=== PATIENT | male | born 1970 | race Caucasian/White ===

== ENCOUNTER → 2020-09-21 | Outpatient (CLI) | payer MEDICARE, MEDICAID | LOC: MSC 14:00 | PROVIDERS: ATTEND Anesthesiology | DX: M46.20 Osteomyelitis of vertebra, site unspecified (principal); M96.1 Postlaminectomy syndrome, not elsewhere classified; M62.830 Muscle spasm of back; Z98.890 Other specified postprocedural states; G89.4 Chronic pain syndrome; F11.20 Opioid dependence, uncomplicated; F31.9 Bipolar disorder, unspecified; F41.9 Anxiety disorder, unspecified ==

== ENCOUNTER 2020-10-26 10:06 | Outpatient (CLI) | payer MEDICARE, OTHER | END 2020-10-26 23:59 | disposition home or self-care (01) | LOC: MSC 10:06 | PROVIDERS: ATTEND Anesthesiology | DX: G89.4 Chronic pain syndrome (principal); M46.20 Osteomyelitis of vertebra, site unspecified; M96.1 Postlaminectomy syndrome, not elsewhere classified; M62.830 Muscle spasm of back; F11.20 Opioid dependence, uncomplicated; F31.9 Bipolar disorder, unspecified; Z79.899 Other long term (current) drug therapy ==

== ENCOUNTER 2023-04-25 20:52 | Inpatient (IN) | payer MEDICARE, OTHER ==
[~2023-04-25] VITALS: Ht 175.3 cm; Wt 81.6 kg
[2023-04-25 21:20] LABS: BASOPHILS # (AUTO) 0.1 K/uL (0.0-0.2); BASOPHILS % (AUTO) 1.2 % (0.0-2.0); EOSINOPHILS # (AUTO) 0.1 K/uL (0.0-0.7); EOSINOPHILS % (AUTO) 1.5 % (0.0-6.0); HEMATOCRIT 38 % (39-51); HEMOGLOBIN 12.3 g/dL (13.5-17.5); LYMPHOCYTES % (AUTO) 27.7 % (20.0-44.0); MEAN CORPUSCULAR HEMOGLOBIN 28 PG (26.0-33.0); MEAN CORPUSCULAR HGB CONC 32 g/dl (31.0-36.0); MEAN CORPUSCULAR VOLUME 85 fL (80-96); MONOCYTES # (AUTO) 0.8 K/uL (0.1-1.30); MONOCYTES % (AUTO) 10.8 % (2.0-12.0); NEUTROPHILS # (AUTO) 4.3 K/uL (1.8-8.9); NEUTROPHILS % (AUTO) 58.8 % (43.0-81.0); PLATELET COUNT (AUTO) 377 K/uL (150-450); RED BLOOD CELL COUNT(AUTO) 4.45 MIL/uL (4.5-6.0); WHITE BLOOD COUNT (AUTO) 7.3 K/uL (4.3-11.0)
[2023-04-25 21:35] LABS: ACETAMINOPHEN <10 ug/ml (10-30); ALANINE AMINOTRANSFERASE 22 U/L (12-78); ALBUMIN 3.3 g/dL (3.4-5.0); ALCOHOL, BLOOD < 3 mg/dL (0-10); ALKALINE PHOSPHATASE 94 U/L (46-116); ASPARTATE AMINOTRANSFERASE 12 U/L (15-37); BILIRUBIN,DIRECT 0.1 mg/dL (0.0-0.2); BILIRUBIN,TOTAL 0.3 mg/dL (0.2-1.0); CALCIUM, SERUM 8.8 mg/dL (8.5-10.1); CARBON DIOXIDE 27 mmol/L (21-32); CHLORIDE 104 mmol/L (98-107); CREATININE 0.7 mg/dL (0.6-1.3); GLUCOSE 112 mg/dL (74-106); POTASSIUM 3.6 mmol/L (3.5-5.1); SALICYLATE 1.2 mg/dL (2.8-20.0); SODIUM SERUM 137 mmol/L (136-145); TOTAL PROTEIN, SERUM 7.4 g/dL (6.4-8.2); UREA NITROGEN, BLOOD 14 mg/dL (7-18)
[2023-04-25] MEDS ORDERED: MELA5TAB PO (23:27)
[2023-04-25] MEDS ORDERED: MINO100T PO (23:27)
[2023-04-25] MEDS ORDERED: MIRT-121 PO (23:27)
[2023-04-25] MEDS ORDERED: METH500T6 PO (23:27)
[2023-04-25] MEDS ORDERED: DIVA-78 PO (23:27)
[2023-04-25] MEDS ORDERED: GABA800T11 PO (23:27)
[2023-04-25] MEDS ORDERED: BUPR8TAB4 SL (23:27)
[2023-04-25] MEDS ORDERED: HALO5TAB PO (23:27)
[2023-04-25] MEDS ORDERED: OLAN5TAB3 PO (23:27)
[2023-04-25 23:50] VITALS: BP 125/93; TEMP 98; O2SAT 97
[2023-04-25 23:58] LABS: APPEARANCE,URINE CLEAR (CLEAR); BILIRUBIN,URINE NEGATIVE (NEGATIVE); BLOOD, URINE NEGATIVE Ery/uL (NEGATIVE); COLOR,URINE YELLOW (YELLOW); KETONES,URINE NEGATIVE (NEGATIVE); LEUKOCYTE ESTERASE ,URINE NEGATIVE (NEGATIVE); NITRITE, URINE NEGATIVE (NEGATIVE); PH,URINE 6.5 (5.0-8.0); PROTEIN,URINE NEGATIVE (NEGATIVE); UGLUCOSE NEGATIVE (NEGATIVE); UROBILINOGEN,URINE 0.2 EU/dL (0.2)
[2023-04-26] MEDS ORDERED: MAG HYDROX/AL HYDROX/SIMETH 30 ML UDC PO PRN
[2023-04-26] MEDS ORDERED: ACETAMINOPHEN 325 MG TABLET PO PRN
[2023-04-26] MEDS ORDERED: MAGNESIUM HYDROXIDE 30 ML UDC PO PRN
[2023-04-26 00:10] LABS: AMPHETAMINE, URINE NEGATIVE (NEGATIVE); BARBITURATE, URINE NEGATIVE (NEGATIVE); BENZODIAZEPINE, URINE NEGATIVE (NEGATIVE); CANNABINOID, URINE NEGATIVE (NEGATIVE); COCCAINE, URINE NEGATIVE (NEGATIVE); OPIATE, URINE NEGATIVE (NEGATIVE); PHENCYCLIDINE SCREEN,URINE NEGATIVE (NEGATIVE)
[2023-04-26] MEDS: BLOOD SUGAR DIAGNOSTIC 1 EACH STRIP IN ONE (00:17)
[2023-04-26] MEDS: clonazePAM 0.5 MG TABLET PO PRN (02:32)
[2023-04-26 08:00] VITALS: BP 141/74; TEMP 97.7; O2SAT 96
[2023-04-26 08:21] LABS: ALBUMIN 3.7 g/dL (3.4-5.0); BILIRUBIN,TOTAL 0.4 mg/dL (0.2-1.0); CALCIUM, SERUM 9.8 mg/dL (8.5-10.1); CREATININE 0.7 mg/dL (0.6-1.3); POTASSIUM 3.9 mmol/L (3.5-5.1); TOTAL PROTEIN, SERUM 8.4 g/dL (6.4-8.2)
[2023-04-26 08:38] LABS: CHOLESTEROL 209 mg/dL (<200); HDL CHOLESTEROL 64 mg/dL (40-60); LDL 121 mg/dL (0-99); TRIGLYCERIDES 57 mg/dL (30-150)
[2023-04-26] MEDS: BENZTROPINE MESYLATE (1 MG) 1 MG TABLET PO SCH (09:22)
[2023-04-26] MEDS: HALOPERIDOL 5 MG TABLET PO SCH (11:00)
[2023-04-26] MEDS: DIVALPROEX SODIUM 500 MG TABLET.DR PO SCH (11:00)
[2023-04-26] MEDS: OLANZAPINE 10 MG TABLET PO SCH (11:21)
[2023-04-26] MEDS ORDERED: CALC-494 PO (12:11)
[2023-04-26] MEDS ORDERED: SENN-261 PO (12:11)
[2023-04-26] MEDS ORDERED: DOCU100C36 PO (12:11)
[2023-04-26] MEDS ORDERED: LACT1CAP72 PO (12:11)
[2023-04-26] MEDS ORDERED: ACET-73 PO (12:11)
[2023-04-26] MEDS: LORAZEPAM INJ 2 MG/ML VIAL IV ONE (13:53)
[2023-04-26] MEDS: diphenhydrAMINE HCL 50 MG/ML VIAL IM ONE (13:53)
[2023-04-26] MEDS: HALOPERIDOL LACTATE INJ 5 MG/ML VIAL IM ONE (13:54)
[2023-04-26 16:00] VITALS: BP 122/95; TEMP 97.8; O2SAT 92
[2023-04-26 20:00] VITALS: BP 110/88; TEMP 98.4; O2SAT 97
[2023-04-26] MEDS: MIRTAZAPINE 15 MG TABLET PO SCH (21:21)
[2023-04-27 08:00] VITALS: BP 111/77; TEMP 97.8; O2SAT 98
[2023-04-27] MEDS: BUPRENORPHINE HCL 8 MG TAB.SUBL SL SCH (13:00)
[2023-04-27] MEDS ORDERED: ACETAMINOPHEN ES 500 MG TABLET PO PRN (13:00)
[2023-04-27] MEDS: LIDOCAINE 5% (PATCH) 1 EA PATCH TP SCH (13:28)
[2023-04-27] MEDS: GABAPENTIN 400 MG CAPSULE PO SCH (13:28)
[2023-04-27 16:00] VITALS: BP 122/87; TEMP 98; O2SAT 97
[2023-04-27] MEDS: BUPRENORPHINE HCL 2 MG SL SCH (16:20)
[2023-04-27] MEDS: LACTOBACILLUS RHAMNOSUS GG 1 EACH CAP.SPRINK PO SCH (17:54)
[2023-04-27] MEDS: DIVALPROEX SODIUM 500 MG TABLET.DR PO SCH (17:54)
[2023-04-27] MEDS: DOCUSATE SODIUM 100 MG CAPSULE PO SCH (17:54)
[2023-04-27] MEDS: SENNOSIDES 8.6 MG TABLET PO SCH (17:54)
[2023-04-27] MEDS: CALCIUM CARBONATE 500 MG TAB.CHEW PO SCH (21:00)
[2023-04-28 08:00] VITALS: BP 114/87; TEMP 97.9; O2SAT 100
[2023-04-28 16:00] VITALS: BP 119/86; TEMP 98; O2SAT 100
[2023-04-28 20:00] VITALS: BP 110/63; TEMP 97.7; O2SAT 97
[2023-04-29 08:00] VITALS: BP 96/77; TEMP 98.6; O2SAT 94
[2023-04-29 16:00] VITALS: BP 105/68; TEMP 98.9; O2SAT 94
[2023-04-29 20:18] VITALS: BP 137/95; TEMP 97.6; O2SAT 99
[2023-04-29] MEDS: TEMAZEPAM 7.5 MG CAPSULE PO PRN (22:07)
[2023-04-30 08:00] VITALS: BP 117/88; TEMP 97.9; O2SAT 99
[2023-04-30] MEDS ORDERED: KEY,NONCONTROL,TO KEEP IN PYXI 1 EA MC ONE (08:27)
[2023-04-30 16:00] VITALS: BP 123/79; TEMP 97.9; O2SAT 98
[2023-04-30 20:24] VITALS: BP 120/88; TEMP 98.2; O2SAT 98
[2023-05-01 08:00] VITALS: BP 145/90; TEMP 98.7; O2SAT 98
[2023-05-01] MEDS ORDERED: KEY,NONCONTROL,TO KEEP IN PYXI 1 EA MC ONE (08:16)
[2023-05-01 16:00] VITALS: BP 123/84; TEMP 98.8; O2SAT 98
[2023-05-01 20:34] VITALS: BP 116/95; TEMP 98.6; O2SAT 97
[2023-05-02 08:00] VITALS: BP 129/90; TEMP 98.7; O2SAT 97
[2023-05-02] MEDS ORDERED: KEY,NONCONTROL,TO KEEP IN PYXI 1 EA MC ONE (08:18)
[2023-05-02 16:00] VITALS: BP 108/69; TEMP 97.9; O2SAT 96
[2023-05-02 20:00] VITALS: BP 117/69; TEMP 97.9; O2SAT 96
[2023-05-03 08:00] VITALS: BP 119/90; TEMP 97.8; O2SAT 95
[2023-05-03] MEDS ORDERED: KEY,NONCONTROL,TO KEEP IN PYXI 1 EA MC ONE (08:51)
== END 2023-05-03 13:30 | DRG 885 ==
LOC: ER 21:01 → GPS 23:14
PROVIDERS: ADMIT Psychiatry & Neurology Psychiatry
DX: F20.0 Paranoid schizophrenia (principal); F11.20 Opioid dependence, uncomplicated; F31.9 Bipolar disorder, unspecified; D69.6 Thrombocytopenia, unspecified; Z87.39 Personal history of other diseases of the musculoskeletal system and connective tissue; G89.29 Other chronic pain; Z79.899 Other long term (current) drug therapy
CPT/HCPCS: 36415; 80048-TC; 80053-TC; 80061-TC; 80076-TC; 82962-TC; 85025-TC; 87081-TC; 97112-TC; 97116-TC; 97530-TC; G0480; J1200; J1630; J2060

== ENCOUNTER 2023-08-05 00:02 | Inpatient (IN) | payer MEDICARE, OTHER ==
[~2023-08-05] VITALS: Ht 175.3 cm; Wt 81.6 kg
[~2023-08-05 00:02] MED LIST: ACET-73 PO; BUPR8TAB4 SL; CALC-494 PO; DIVA-78 PO; DOCU100C36 PO; GABA800T11 PO; HALO5TAB PO; LACT1CAP72 PO; MELA5TAB PO; METH500T6 PO; MINO100T PO; MIRT-121 PO; OLAN5TAB3 PO; SENN-261 PO
[2023-08-05 00:46] LABS: BASOPHILS # (AUTO) 0.1 K/uL (0.0-0.2); BASOPHILS % (AUTO) 1.1 % (0.0-2.0); EOSINOPHILS # (AUTO) 0.7 K/uL (0.0-0.7); EOSINOPHILS % (AUTO) 10.2 % (0.0-6.0); HEMATOCRIT 39 % (39-51); HEMOGLOBIN 13.1 g/dL (13.5-17.5); LYMPHOCYTES # (AUTO) 2.4 K/uL (0.8-4.8); LYMPHOCYTES % (AUTO) 34.7 % (20.0-44.0); MEAN CORPUSCULAR HEMOGLOBIN 31 PG (26.0-33.0); MEAN CORPUSCULAR HGB CONC 34 g/dl (31.0-36.0); MEAN CORPUSCULAR VOLUME 91 fL (80-96); MONOCYTES # (AUTO) 0.6 K/uL (0.1-1.30); MONOCYTES % (AUTO) 8.7 % (2.0-12.0); NEUTROPHILS # (AUTO) 3.1 K/uL (1.8-8.9); NEUTROPHILS % (AUTO) 45.3 % (43.0-81.0); PLATELET COUNT (AUTO) 273 K/uL (150-450); RED BLOOD CELL COUNT(AUTO) 4.27 MIL/uL (4.5-6.0); RED CELL DISTRIBUTION WIDTH 15.5 % (11.5-15.0); WHITE BLOOD COUNT (AUTO) 6.9 K/uL (4.3-11.0)
[2023-08-05 01:07] LABS: CALCIUM, SERUM 8.5 mg/dL (8.5-10.1); CARBON DIOXIDE 27 mmol/L (21-32); CHLORIDE 109 mmol/L (98-107); CREATININE 0.9 mg/dL (0.6-1.3); GLUCOSE 94 mg/dL (74-106); POTASSIUM 4.1 mmol/L (3.5-5.1); SODIUM SERUM 141 mmol/L (136-145); UREA NITROGEN, BLOOD 20 mg/dL (7-18)
[2023-08-05 01:11] LABS: ALANINE AMINOTRANSFERASE 63 U/L (12-78); ALBUMIN 2.9 g/dL (3.4-5.0); ALCOHOL, BLOOD < 3 mg/dL (0-10); ALKALINE PHOSPHATASE 84 U/L (46-116); ASPARTATE AMINOTRANSFERASE 31 U/L (15-37); BILIRUBIN,TOTAL 0.2 mg/dL (0.2-1.0)
[2023-08-05 01:13] LABS: SALICYLATE 1.6 mg/dL (2.8-20.0)
[2023-08-05 01:14] LABS: ACETAMINOPHEN <10 ug/ml (10-30)
[2023-08-05 04:25] LABS: AMPHETAMINE, URINE NEGATIVE (NEGATIVE); BARBITURATE, URINE NEGATIVE (NEGATIVE); BENZODIAZEPINE, URINE NEGATIVE (NEGATIVE); CANNABINOID, URINE NEGATIVE (NEGATIVE); COCCAINE, URINE NEGATIVE (NEGATIVE); OPIATE, URINE NEGATIVE (NEGATIVE); PHENCYCLIDINE SCREEN,URINE NEGATIVE (NEGATIVE)
[2023-08-05 04:38] LABS: APPEARANCE,URINE CLEAR (CLEAR); BILIRUBIN,URINE NEGATIVE (NEGATIVE); BLOOD, URINE NEGATIVE Ery/uL (NEGATIVE); COLOR,URINE YELLOW (YELLOW); KETONES,URINE NEGATIVE (NEGATIVE); LEUKOCYTE ESTERASE ,URINE NEGATIVE (NEGATIVE); NITRITE, URINE NEGATIVE (NEGATIVE); PH,URINE 6.5 (5.0-8.0); PROTEIN,URINE NEGATIVE (NEGATIVE); UGLUCOSE NEGATIVE (NEGATIVE); UROBILINOGEN,URINE 0.2 EU/dL (0.2)
[2023-08-05] MEDS ORDERED: NA P133E RC (08:13)
[2023-08-05] MEDS ORDERED: LIDO28.310 TP (08:13)
[2023-08-05] MEDS ORDERED: ACET325T53 PO (08:13)
[2023-08-05] MEDS ORDERED: MAGN400O6 PO (08:13)
[2023-08-05] MEDS ORDERED: BISA10SU11 RC (08:13)
[2023-08-05] MEDS ORDERED: MAGNESIUM HYDROXIDE 30 ML UDC PO PRN ×2 (09:30→14:00)
[2023-08-05] MEDS ORDERED: MAG HYDROX/AL HYDROX/SIMETH 30 ML UDC PO PRN (09:30)
[2023-08-05] MEDS: BLOOD SUGAR DIAGNOSTIC 1 EACH STRIP IN ONE (09:30)
[2023-08-05] MEDS ORDERED: BISACODYL SUPP (10 MG) 10 MG/SUPP.RECT SUPP.RECT RC PRN (14:00)
[2023-08-05] MEDS ORDERED: NA PHOS,M-B/NA PHOS,DI-BA 1 EA ENEMA RC PRN (14:00)
[2023-08-05] MEDS ORDERED: ACETAMINOPHEN 325 MG TABLET PO PRN (14:00)
[2023-08-05] MEDS ORDERED: DIVALPROEX SODIUM 500 MG TABLET.DR PO SCH (17:00)
[2023-08-05] MEDS: GABAPENTIN 400 MG CAPSULE PO SCH (18:14)
[2023-08-05] MEDS: SENNOSIDES 8.6 MG TABLET PO SCH (18:14)
[2023-08-05] MEDS: DOCUSATE SODIUM 100 MG CAPSULE PO SCH (18:14)
[2023-08-05 20:00] VITALS: BP 128/86; TEMP 98; O2SAT 98
[2023-08-05 20:23] VITALS: BP 128/86; TEMP 98; O2SAT 98
[2023-08-06 08:00] VITALS: BP 120/99; TEMP 98.2; O2SAT 100
[2023-08-06] MEDS: CALCIUM CARB 600MG /VIT D 1 EACH TABLET PO SCH (08:21)
[2023-08-06] MEDS ORDERED: clonazePAM 0.5 MG TABLET PO PRN (12:00)
[2023-08-06 15:46] LABS: CREATININE 0.9 mg/dL (0.6-1.3)
[2023-08-06 15:51] LABS: ALBUMIN 3.1 g/dL (3.4-5.0); BILIRUBIN,TOTAL 0.4 mg/dL (0.2-1.0); CALCIUM, SERUM 8.9 mg/dL (8.5-10.1); TOTAL PROTEIN, SERUM 6.9 g/dL (6.4-8.2)
[2023-08-06 16:00] VITALS: BP 122/98; TEMP 97.9; O2SAT 100
[2023-08-06] MEDS: clonazePAM 0.5 MG TABLET PO SCH (16:07)
[2023-08-06] MEDS: PERMETHRIN 5% CRM 60 GM TUBE TP ONE (18:03)
[2023-08-06 20:14] VITALS: BP 113/76; TEMP 98.2; O2SAT 98
[2023-08-06] MEDS: OLANZAPINE 10 MG TABLET PO SCH (21:13)
[2023-08-07 08:00] VITALS: BP 130/86; TEMP 98.1; O2SAT 98
[2023-08-07 16:00] VITALS: BP 105/82; TEMP 97.9; O2SAT 99
[2023-08-07 20:08] VITALS: BP 118/66; TEMP 98.4; O2SAT 98
[2023-08-08 08:00] VITALS: BP 110/54; TEMP 98.1; O2SAT 95
[2023-08-08 16:00] VITALS: BP 120/61; TEMP 98.6; O2SAT 97
[2023-08-08 20:00] VITALS: BP 116/62; TEMP 98.4; O2SAT 98
[2023-08-09 08:00] VITALS: BP 119/67; TEMP 97.5; O2SAT 98
[2023-08-09] MEDS: LORAZEPAM 0.5 MG TABLET PO PRN (13:52)
[2023-08-09 16:00] VITALS: BP 129/61; TEMP 97.5; O2SAT 95
[2023-08-09 20:00] VITALS: BP 128/68; TEMP 98.2; O2SAT 96
[2023-08-10 08:00] VITALS: BP 107/86; TEMP 97.8; O2SAT 97
[2023-08-10 16:08] VITALS: BP 129/86; TEMP 98; O2SAT 97
[2023-08-10 20:00] VITALS: BP 118/81; TEMP 97.6; O2SAT 99
[2023-08-11 21:10] VITALS: BP 138/98; TEMP 98.4; O2SAT 98
[2023-08-12 08:00] VITALS: BP 127/91; TEMP 98.7; O2SAT 98
[2023-08-12] MEDS ORDERED: VITAMINS A AND D 56.7 GM TUBE TP PRN ×2 (12:00)
[2023-08-12 16:00] VITALS: BP 121/94; TEMP 97.7; O2SAT 96
[2023-08-13] MEDS: ZOLPIDEM TARTRATE 5 MG TABLET PO PRN (02:23)
[2023-08-13 08:00] VITALS: BP 124/90; TEMP 98; O2SAT 99
[2023-08-13 16:00] VITALS: BP 123/90; TEMP 98.1; O2SAT 97
[2023-08-13] MEDS: ACETAMINOPHEN 325 MG TABLET PO PRN (19:57)
[2023-08-13 20:25] VITALS: BP 115/98; TEMP 98.6; O2SAT 95
[2023-08-14] MEDS: diphenhydrAMINE HCL 25 MG CAPSULE PO PRN (04:05)
[2023-08-14 08:00] VITALS: BP 116/84; TEMP 97.9; O2SAT 98
[2023-08-14 16:03] VITALS: BP 140/97; TEMP 98; O2SAT 96
[2023-08-14 20:21] VITALS: BP 126/89; TEMP 98.4; O2SAT 98
[2023-08-15 08:00] VITALS: BP 132/96; TEMP 97.7; O2SAT 99
== END 2023-08-15 12:20 | DRG 885 ==
LOC: ER 00:17 → GPS 05:56
PROVIDERS: ADMIT Psychiatry & Neurology Psychosomatic Medicine
DX: F29 Unspecified psychosis not due to a substance or known physiological condition (principal); F20.9 Schizophrenia, unspecified; G89.29 Other chronic pain; Z86.61 Personal history of infections of the central nervous system; Z79.899 Other long term (current) drug therapy; Z20.822 Contact with and (suspected) exposure to COVID-19; M62.81 Muscle weakness (generalized); F31.9 Bipolar disorder, unspecified; R21 Rash and other nonspecific skin eruption
CPT/HCPCS: 36415; 80053-TC; 80061-TC; 82565-TC; 85025-TC; 87081-TC; 97112-TC; 97116-TC; 97530-TC; G0480; Q0163